=== PATIENT | male | born 1995 | race Caucasian/White ===

== ENCOUNTER 2019-01-20 11:47 | Emergency (ER) | payer BC ==
[~2019-01-20] VITALS: Ht 182.9 cm; Wt 104.3 kg
[2019-01-20 13:28] VITALS: BP 96/75
== END 2019-01-20 13:29 | disposition home or self-care (01) ==
LOC: ER 11:47
DX: J06.9 Acute upper respiratory infection, unspecified (principal); B36.0 Pityriasis versicolor; F17.210 Nicotine dependence, cigarettes, uncomplicated